=== PATIENT | male | born 1985 | race Caucasian/White ===

== ENCOUNTER 2017-12-15 20:32 | Inpatient (IN) | payer OTHER ==
[~2017-12-15] VITALS: Ht 175.3 cm; Wt 115.7 kg
[~2017-12-15 20:32] MED LIST: ACETAMINOPHEN-1 EAC1 PO; HYDROCODON-ACE1 EAC7 PO; IBUPROFEN 600600 M1 PO; IBUPROFEN 800800 M1 PO; MEDROLDOSEPACK PO; NOHOMEMEDICATIONS; NORCO 5-325 TA1 EACH PO; NORFLEX100 MG PO; PROAIR HFA8.5 GM INH; TESSALON PERLE100 MG PO
[2017-12-15 20:40] VITALS: BP 185/100
[2017-12-15 21:05] LABS: ABSOLUTE NEUTROPHILS 1.9 thou/uL (1.6-8.1); MCHC 35.9 g/dL (28.0-37.0); RBC 4.76 mil/uL (4.50-6.00)
[2017-12-15 21:08] LABS: ABSOLUTE LYMPHOCYTES 1.5 thou/uL (0.8-5.3); ABSOLUTE MONOCYTES 0.5 thou/uL (0.0-1.2); BASOPHILS 0.5 %; EOSINOPHILS 0.4 %; HEMATOCRIT 40.6 % (42.0-52.0); HEMOGLOBIN 14.6 gm/dL (14.0-18.0); LYMPHOCYTES 37.2 %; MCH 30.7 pg (26.0-34.0); MCV 85.4 fL (80.0-100.0); MONOCYTES 13.3 %; MPV 7.5 fl. (7.2-11.1); NUCLEATED RBCS 0 /100WBC; PLATELET COUNT* 192 thou/uL (150-400); POLYS 48.6 %; RDW-CV 13.6 % (10.5-14.5); WBC 3.9 thou/uL (4.0-11.0)
[2017-12-15 21:15] LABS: ANION GAP 7 mmol/L (7-16); BUN 15 mg/dL (7-18); CALCIUM 8.2 mg/dL (8.5-10.1); CHLORIDE 100 mmol/L (98-107); CO2 30 mmol/L (21-32); CREATININE 1.2 mg/dL (0.6-1.3); GLUCOSE 107 mg/dL (70-99); POTASSIUM 3.7 mmol/L (3.5-5.1); SODIUM 137 mmol/L (136-145)
[2017-12-15 21:17] LABS: INR 1.1; PROTIME 11.1 Seconds (9.20-11.50)
[2017-12-15 21:22] LABS: ALBUMIN 4.3 g/dL (3.4-5.0); ALKALINE PHOSPHATASE 79 U/L (46-116); SGPT 84 U/L (30-65); TOTAL BILIRUBIN 1.7 mg/dL (<0.1-1.0); TOTAL PROTEIN 8.2 g/dL (6.4-8.2); TROPONIN-I LEVEL <0.06 ng/mL (<0.06)
[2017-12-15 21:49] LABS: SGOT 55 U/L (15-37)
--- NOTE | 2017-12-15 21:57 | NUR ---
WENT TO TAKE TEMPERATURE TO FOLLOW UP ON MEDS. PT IS CURRENTLY IN CT. WILL CHECK WHEN RETURNS TO FLOOR.
[2017-12-15 22:24] LABS: ESR (SEDRATE) 13 mm/hr (0-15)
[2017-12-15 23:01] LABS: URINE BILIRUBIN NEGATIVE (Negative); URINE BLOOD TRACE (Negative); URINE CLARITY CLEAR; URINE COLOR YELLOW; URINE GLUCOSE-RANDOM NEGATIVE (Negative); URINE KETONES NEGATIVE (Negative); URINE LEUKOCYTES-REFLEX NEGATIVE (Negative); URINE NITRITE-REFLEX NEGATIVE (Negative); URINE PROTEIN NEGATIVE (Negative); URINE SPECIFIC GRAVITY <= 1.005 (1.005-1.030); URINE UROBILINOGEN 0.2 E.U./dl (0.2-1.0)
[2017-12-16 00:05] VITALS: BP 136/72
--- NOTE | 2017-12-16 01:27 | NUR ---
PATIENT ADMITTED TO ROOM 105 AT APPROXIMATELY 0005 FROM ER. VSS ON RA. AT BEDSIDE AND STAYING THE NIGHT. PATIENT ORIENTED TO ROOM AND POLICIES. FALL EDUCATION GIVEN AND FALL AGREEMENT SIGNED. PATIENT VERBALIZED UNDERSTANDING. ASSESSMENT CHARTED. IV IN LEFT AC- NS @ 100ML/HR. PATIENT INSTRUCTED TO USE CALL LIGHT WHEN NEEDING ASSISTANCE AND HOURY ROUNDS TO BE MADE. WILL CONTINUE WITH PLAN OF CARE AND NURSING TO MONITOR.
[2017-12-16 01:32] VITALS: BP 140/86
[2017-12-16 04:38] LABS: HEMATOCRIT 37.3 % (42.0-52.0); MCH 30.3 pg (26.0-34.0); MCHC 34.9 g/dL (28.0-37.0); MCV 86.6 fL (80.0-100.0); MPV 7.6 fl. (7.2-11.1); RBC 4.3 mil/uL (4.50-6.00); RDW-CV 13.2 % (10.5-14.5); WBC 3.6 thou/uL (4.0-11.0)
[2017-12-16 05:00] LABS: ALBUMIN 3.6 g/dL (3.4-5.0); CALCIUM 8.2 mg/dL (8.5-10.1); CREATININE 1.1 mg/dL (0.6-1.3); POTASSIUM 3.6 mmol/L (3.5-5.1); TOTAL BILIRUBIN 1.3 mg/dL (<0.1-1.0); TOTAL PROTEIN 6.8 g/dL (6.4-8.2)
--- NOTE | 2017-12-16 06:48 | NUR ---
PATIENT HAS RESTED COMFORTABLY SINCE BEING ADMITTED TO UNIT. IN ROOM AT BEDSIDE. NO C/O PAIN. IV IN LEFT AC-NS @ 100ML/HR. PATIENT INSTRUCTED TO USE CALL LIGHT WHEN NEEDING ASSISTANCE. HOURLY ROUNDS MADE. WILL CONTINUE WITH PLAN OF CARE AND NURSING TO MONITOR.
[2017-12-16 10:53] VITALS: BP 145/78
[2017-12-16 15:53] VITALS: BP 140/72
--- NOTE | 2017-12-16 16:47 | NUR ---
ASSUMED CARE OF PATIENT AFTER MORING REPORT AT APPROX 0730. ALERT AND ORIENTED X4. ASSESSMENT COMPLETED AND CHARTED. VSS ON ROOM AIR. NO COMPLAINTS OF PAIN, NAUSEA, OR SOA. PATIENT REMAINED AFEBRILE THROUGHOUT SHIFT. NO COMPLAINTS THROUGHOUT SHIFT. HAS BEEN AT BEDSIDE THROUGHOUT SHIFT. AWAITING RESULTS FROM LABS AND CULTURES FOR FURTHER TREATMENT PLAN. HOURLY ROUNDS MAINTAINED, CALL LIGHT WITHIN REACH, NURSING WILL CONTINUE TO MONITOR.
[2017-12-16 20:45] VITALS: BP 153/101
--- NOTE | 2017-12-17 05:37 | NUR ---
PATIENT HAS SLEPT WELL THROUGHOUT THE NIGHT WITHOUT ANY ISSUES. NO C/O PAIN. VSS ON RA. PATIENT IS UP AD-[place] AND STEADY. IV IN LEFT AC-NS @ 100ML/HR. PATIENT INSTRUCTED TO USE CALL LIGHT WHEN NEEDING ASSISTANCE. HOURLY ROUNDS MADE. WILL CONTINUE WITH PLAN OF CARE AND NURSING TO MONITOR.
[2017-12-17 08:10] VITALS: BP 130/71
[2017-12-17 10:34] LABS: INFLUENZA A ANTIGEN None Detected (None Detect); INFLUENZA B ANTIGEN None Detected (None Detect)
[2017-12-17 11:43] VITALS: BP 153/101
[2017-12-17 11:50] VITALS: BP 153/101
[2017-12-17 11:53] VITALS: BP 153/101
[2017-12-17 12:30] VITALS: BP 153/101
--- NOTE | 2017-12-17 13:12 | CON ---
[address] [address] CONSULTATION Name: ALLEGRA MISHRA Room: [address] IN ..#: [id number] Admission: 12/15/17 Attend Phys: Alexy Corado, Discharge: Date of : 85 Report #: [id number] THIS REPORT FOR: //name// CC: [facility] physician/PCP Alexy Corado DATE OF SERVICE: 12/16/2017 INFECTIOUS DISEASES CONSULTATION REASON FOR CONSULTATION: I was asked to evaluate concerning persistent fever, chills and sweats. HISTORY OF PRESENT ILLNESS: The patient is a 32-year-old with onset of fever, chills and night sweats that occurred 4 days ago. Otherwise, he has felt reasonably well. No nausea, vomiting, diarrhea, dysuria, frequency or rash. He has had mild myalgias and persistent arthralgias without arthritis. He lives with his and 5-year-old child both of which have been healthy. His is 13 weeks . He works as an journeyman apprentice electricians. Some outdoor activities. No documented tick exposure. No travel outside the [place]. No prior history of similar episodes. Otherwise, he has been healthy with no hospitalizations and on no medications. He notes that these symptoms are mostly in the evening. He has mild chills with temperature over 101 degrees. He has had drenching night sweats. Along with this, he gets a bit flushed and achy with mild headache. During the day, he feels reasonably well with a good appetite. No visual changes, auditory changes, pharyngitis symptoms, no peripheral adenopathy noted. He has had no HIV risk factors. REVIEW OF SYSTEMS: Ten-point review was negative other than what is described above. ALLERGIES: None known. MEDICATIONS: Again, none prior to his admission. FAMILY HISTORY: Noncontributory. SOCIAL HISTORY: , nonsmoker, no significant alcohol intake. PAST MEDICAL HISTORY: Unremarkable. PHYSICAL EXAMINATION: GENERAL: He was alert, cooperative, in no acute distress, conversant with normal mental status. SKIN: Unremarkable with no rash or decubiti. LYMPH: [place] [address] CONSULTATION Name: DANICA,SHADEJANELL Cadet Room: [address]#: [id number] Admission: 12/15/17 Attend Phys: Alexy oCrado, Discharge: Date of : 85 Report #: [id number] HEENT: Eyes, no conjunctival injection or scleral icterus. Mouth without lesion. He has had no dental tenderness. No pharyngitis or posterior oropharynx changes. NECK: Supple. No thyromegaly or mass. LUNGS: Clear. HEART: Regular. ABDOMEN: Soft, nontender. No hepatosplenomegaly or mass. GENITOURINARY: External genitalia unremarkable. Perianal examination unremarkable. EXTREMITIES: Unremarkable. NEUROLOGIC: Normal including cranial nerves, strength and sensation. Mood normal. LABORATORY STUDIES: Sodium 136, potassium 3.6, bicarbonate 26, creatinine 1.1. AST 43, ALT 70, alkaline phosphatase 69, bilirubin 1.3. Hemoglobin 13, platelet count 161,000, white count was 3.6, 48% segs, 37% lymphs. No atypical lymphs. Blood cultures are negative to date. Ultrasound of right lower extremity was negative for DVT. V/Q scan negative. Group A strep antigen negative. Sedimentation rate 13. Chest x-ray clear. CT scan of the abdomen steatohepatitis. No splenomegaly. IMPRESSION: Four-day history of fever associated with mild leukopenia and mild hepatitis. Suspecting viral etiology would be most likely. No evidence of liver abscess, other consideration would include tick-borne process. RECOMMENDATIONS: We will continue with doxycycline and ceftriaxone pending culture results. Check viral studies including hepatitis virus serologies, CMV, EBV, also add Ehrlichia and [place] spotted fever. So far, West Nile virus and hepatitis A, B and C have already been tested and are pending. We will repeat a CBC in the a.m. Follow his liver function tests. <ELECTRONICALLY SIGNED> By: Huy Pettit MD 12/17/17 1312 1520 [id number] Pettit MD /nt
--- NOTE | 2017-12-17 15:05 | NUR ---
PT ALERT AND ORIENTED X 4. IVF INFUSING @ 100 MLS/HR. DENIES PAIN AND NAUSEA. UP INDEPENDENTLY. VS STABLE. MAINTAINED HOURLY ROUNDS. WILL USE CALL LIGHT FOR ASSISTANCE. CALL LIGHT WITHIN REACH. FLU SWAB-NEGATIVE. IV REMOVED. DISCHARGED INSTRUCTIONS GIVEN. PT LEFT UNIT WITH NURSING STAFF WITH PERSONAL BELONGINGS TO LEAVE PER PRIVATE CAR @ 1210.
[2017-12-17 16:11] LABS: HEPATITIS B SURFACE AG Negative (Negative)
[2017-12-18 07:07] LABS: HIV-1/HIV-2 ANTIBODY Non Reactive (Non Reactive)
[2017-12-18 11:12] LABS: CMV IgM Abs <30.0 AU/mL (0.0-29.9); EBNA-1 IgG <18.0 U/mL (0.0-17.9); EBV EA IgG <9.0 U/mL (0.0-8.9); EBV VCA IgM <36.0 U/mL (0.0-35.9)
== END 2017-12-17 12:10 | disposition home or self-care (01) | DRG 872 ==
LOC: M.ERS 20:32 → M.TBA-ER 23:24 → M.ORTHSURG 12-16 00:07
PROVIDERS: Emergency Medicine; Internal Medicine; Specialist; ADMIT Family Medicine
DX: A41.89 Other specified sepsis (principal); E66.01 Morbid (severe) obesity due to excess calories; R31.9 Hematuria, unspecified; B97.89 Other viral agents as the cause of diseases classified elsewhere; R74.0 Nonspecific elevation of levels of transaminase and lactic acid dehydrogenase [LDH]; K75.9 Inflammatory liver disease, unspecified; Z84.89 Family history of other specified conditions; Z68.37 Body mass index [BMI] 37.0-37.9, adult

== ENCOUNTER 2018-07-04 18:49 | Emergency (ER) | payer OTHER ==
[~2018-07-04] VITALS: Ht 175.3 cm; Wt 120.2 kg
[2018-07-04] MEDS ORDERED: IBUPROFEN 800800 M1 PO (19:05)
[2018-07-04] MEDS ORDERED: CYCLOBENZAPRINE5 MG PO (19:05)
[2018-07-04] MEDS ORDERED: NORCO 5-325 TA1 EACH PO (19:27)
[2018-07-04] MEDS ORDERED: MEDROLDOSEPACK PO (19:27)
[2018-07-04 20:20] VITALS: BP 162/84
== END 2018-07-04 20:20 | disposition home or self-care (01) ==
LOC: M.ERS 18:49
DX: S39.012A Strain of muscle, fascia and tendon of lower back, initial encounter (principal); X50.9XXA Other and unspecified overexertion or strenuous movements or postures, initial encounter; Y93.89 Activity, other specified; Y92.89 Other specified places as the place of occurrence of the external cause; Y99.0 Civilian activity done for income or pay